=== PATIENT | female | born 2000 | race Caucasian/White ===

== ENCOUNTER 2022-10-04 09:55 | Outpatient (CLI) | payer BC, MEDICAID, SELFPAY ==
--- NOTE | 2022-10-04 | US_ITS ---
WS: [id number] RIGHT UPPER QUADRANT ULTRASOUND HISTORY: RUQ pain COMPARISON: None available. Liver: 16.2 cm in length. Normal size liver and echogenicity. No bile duct dilatation or mass. Portal Vein: Normal hepatopetal flow with monophasic waveform. Gallbladder: Normally distended gallbladder with no stones or wall thickening. CBD: 0.3 cm Pancreas: Normal size and echogenicity. Right kidney: 11.6 cm in length. Normal size and echogenicity. No hydronephrosis or mass. Aorta and IVC: Unremarkable abdominal aorta and IVC. No ascites. US/US gall bladder [id number] IMPRESSION: Normal RIGHT upper quadrant ultrasound.
== END 2022-10-04 09:56 | disposition home or self-care (01) ==
LOC: RAD 09:57
PROVIDERS: PCP Nurse Practitioner Family; Visit Provider Nurse Practitioner Family
DX: R10.11 Right upper quadrant pain (principal)
CPT/HCPCS: 76705

== ENCOUNTER 2022-10-11 09:22 | Emergency (ER) | payer BC, MEDICAID, SELFPAY ==
[2022-10-11 09:43] VITALS: BP 125/79; PULSE 105; RESP 18; TEMP 36.7; O2SAT 99; BMI 28.1
--- NOTE | 2022-10-11 09:55 | ED_ITS ---
HPI - Extremity Problem General: Chief complaint: Extremity Problem,Nontraumatic Stated complaint: left leg swollen and numb Time Seen by Provider: 10/11/22 09:26 Source: patient and family Mode of arrival: ambulatory Limitations: no limitations History of Present Illness: Patient is a 21-year-old female presents to ED today with a complaint of left lower extremity pain and swelling. Patient states she has had symptoms for approximately 4 months now. Pain and swelling seem to be worse when she is on her feet all day and seems to slightly improved with rest/elevation but states swelling never fully subsides. She has seen her primary care provider for this issue. She states a while ago she had an ultrasound performed which did not show a DVT. She states she has been referred to a vein clinic in [place] but their appointment is not until next month. She has not noticed any color, temperature or skin changes to the extremity. She denies shortness of breath or difficulty breathing. She denies any groin pain. Denies previous abdominal surgeries/radiation. MD Complaint: extremity pain and extremity swelling Onset (ago): month(s) Pain Consistency: constant and intermittent Location: left and lower extremity Radiation: none Relieving factors: elevation and rest Exacerbating factors: walking and other (being on her feet all day) Associated symptoms: Reports no associated symptoms; Deny chest pain, fever(s) or rash Review of Systems Const: Denies: fever(s), chills, body aches, fatigue or malaise Card: Denies: chest pain Resp: Denies: dyspnea GI: Denies: abdominal pain Musc: Reports: extremity pain and extremity swelling; Denies: neck pain, back pain, joint pain, joint swelling, joint redness, joint warmth or limited range of motion Skin/Breast: Denies: rash Neuro: Denies: numbness in extremities, weakness in extremities, sensory changes or difficulty walking Physical Exam Const: COMMON NORMALS: no acute distress, patient oriented x3, no limitations, alert and well nourished GENERAL APPEARANCE: cooperative NUTRITIONAL APPEARANCE: overweight ORIENTATION/CONSCIOUSNESS: Yes awake, Yes oriented to person, Yes oriented to place and Yes oriented to time Neck/C-Spine: COMMON NORMALS: no JVD Resp: COMMON NORMALS: normal respiratory effort and clear to auscultation bilaterally AUSCULTATION: clear to auscultation bilaterally Cardio: COMMON NORMALS: no JVD, regular rate and regular rhythm RATE: regular rate RHYTHM: regular rhythm GI: COMMON NORMALS: Normal to inspection, nondistended, normoactive bowel sounds present, Soft to palpation, non-tender, No hepatosplenomegaly present and no masses INSPECTION: Yes normal to inspection PALPATION: Yes Soft to palpation and Yes No hepatosplenomegaly present Extremity: COMMON NORMALS: full ROM, capillary refill normal and no joint enlargement GENERAL: Yes normal exam except as noted and Yes edema (L LE) LEFT LOWER EXTREMITY: Yes lower leg, Yes ankle joint and Yes foot & digits OTHER: non-pitting edema noted to L LE when compared to the R; calf circumference discrepancy between the two extremities is obvious; normal color/temp; no varicosities noted; sensation is normal; DP and PT pulses easily palpable; brisk cap refill Neuro: COMMON NORMALS: patient oriented x3, moves all extremities, no focal motor deficits and no sensory deficits noted SENSORIUM/ORIENTATION: Yes alert, Yes oriented to person, Yes oriented to place and Yes oriented to time Skin: COMMON NORMALS: no rashes or lesions noted GENERAL SKIN EXAM: no rashes or lesions noted Course Vital Signs: Vital signs: Vital Signs Temperature 98.0 F 10/11/22 09:43 Pulse Rate 105 H 10/11/22 09:43 Respiratory Rate 18 10/11/22 09:43 Blood Pressure 125/79 10/11/22 09:43 Pulse Oximetry 99 10/11/22 09:43 Oxygen Delivery Me thod Room Air 10/11/22 09:43 MDM - Extremity (Nontraumatic) Medical Decision Making DDx for unilateral lower extremity edema includes musculoskeletal injury, lymphatic obstruction, venous insufficiency, Blake's cyst, May Thurner syndrome, idiopathic. Her US here is negative for DVT. Nothing noted on US to suggest extrinsic compression. At this time patient is stable to follow up with her PCP for further evaluation/management. Discharge Plan Discharge Patient Disposition: Home Clinical Impression: Unilateral edema of lower extremity Condition: Stable Discharge Orders: Discharge ED (Routine); Ordered 10/11/22 Ordered By: Delisa Hartman Referrals: Felicity De Souza [Primary Care Provider] - Coding Level of Care Code ED Door Furring Installer for Tucker Cowan
--- NOTE | 2022-10-11 10:00 | USCV_ITS ---
Mariola Lerma Age: 21 Gender: F : 2000 Exam Date: 10/11/2022 11:05 Ordering Phys: Delisa Hartman Technologist: Rajan Senior Exam Location: [facility] [place]_ Indication: swelling/ pain PROCEDURES: Venous duplex imaging was performed in only the left lower extremity. The following venous structures were evaluated: common femoral vein, profunda vein, proximal portion of the greater saphenous vein, superficial femoral vein, and the popliteal vein. In addition, the posterior tibial and peroneal trunk were evaluated. Serial compression, augmentation maneuvers, and spectral Doppler flow evaluation were performed. Also scanned iliac vein in the pelvis. FINDINGS: Normal 2-D Doppler and augmentation and compressibility throughout the lower extremity venous structures. Additional imaging through the proximal calf veins also reveals no thrombus. Limited evaluation of the greater saphenous vein is patent with no thrombus. Left iliac vein normal. CONCLUSIONS No DVT left lower extremity. Dr. Roxane Alejo DO (Electronically Signed) Final Date: 11 October 2022 11:43 S
[2022-10-12 08:36] LABS: Glucose Point of Care 269 mg/dL (70-110)
== END 2022-10-11 11:51 | disposition home or self-care (01) ==
PROVIDERS: Emergency Provider Physician Assistant; PCP Nurse Practitioner Family
DX: R60.0 Localized edema (principal)
CPT/HCPCS: 36416; 82962; 93971; 99284

== ENCOUNTER 2022-11-08 12:44 | Emergency (ER) | payer BC, MEDICAID, SELFPAY ==
[2022-11-08 12:54] VITALS: BMI 28.1
[2022-11-08 12:57] VITALS: BP 128/94; PULSE 98; RESP 18; TEMP 36.7; O2SAT 100
--- NOTE | 2022-11-08 13:10 | W.ED.FEMALGU ---
HPI - Female Genitourinary General: Chief complaint: Urogenital-Female Stated complaint: needed labs done Time Seen by Provider: 11/08/22 12:52 History of Present Illness: Patient presents to the ER with complaints of right-sided abdominal pain about the level of the umbilicus for 3 days. She is also been spotting during this time. Patient is taken a couple home test had been negative. But her provider sent her over here to be worried about her an ectopic or ovarian cyst. Date of Last Menstrual Period: 10/29/22 Review of Systems General: Reports: 10 or more systems reviewed and unremarkable except in HPI and below [facility] Female Reproductive History: Date of last menstrual period: 10/29/22 Physical Exam Const: COMMON NORMALS: no acute distress, average body habitus, patient oriented x3, no limitations, healthy appearing, alert and well nourished HENMT: COMMON NORMALS: normocephalic, atraumatic, hearing grossly normal bilaterally, external ears normal, Normal external nose present and moist oral mucous membranes HEAD & SCALP: normocephalic and atraumatic NOSE: Normal external nose present EXTERNAL EAR: Yes external ears normal Eye: COMMON NORMALS: Equal, round and reactive pupils present, EOMs intact bilaterally, conjunctivae normal and no scleral icterus CONJUNCTIVA: Yes conjunctivae normal PUPIL: Yes Equal, round and reactive pupils present Neck/C-Spine: COMMON NORMALS: full ROM, no lymphadenopathy, supple, no meningeal signs, no JVD and Thyroid normal THYROID: Thyroid normal Lymph: LYMPHATIC: no lymphadenopathy noted Chest: COMMONS NORMALS: normal inspection of the chest and normal palpation of entire chest wall Resp: COMMON NORMALS: normal respiratory effort, No retractions, No use of accessory muscles and clear to auscultation bilaterally AUSCULTATION: clear to auscultation bilaterally Cardio: COMMON NORMALS: no JVD, regular rate, regular rhythm, S1 normal heart sound present, S2 normal heart sound present, No gallops present (Cardio), No clicks present (Cardio), No murmurs present (Cardio) and No rub (Cardio) RATE: regular rate RHYTHM: regular rhythm HEART SOUNDS: S1 normal heart sound present and S2 normal heart sound present GI: COMMON NORMALS: Normal to inspection, nondistended, normoactive bowel sounds present, Soft to palpation, No hepatosplenomegaly present and no masses; negative for non-tender (Positive right upper quadrant tenderness with palpation.) PALPATION: Yes Soft to palpation and Yes No hepatosplenomegaly present : COMMON NORMALS: Yes no CVA tenderness BLADDER/KIDNEY EXAM: Yes no CVA tenderness Back/Pelvis: COMMON NORMALS: no CVA tenderness Neuro: COMMON NORMALS: patient oriented x3 SENSORIUM/ORIENTATION: Yes alert MENINGEAL SIGNS: Yes no meningeal signs Course Vital Signs: Vital signs: Vital Signs Temperature 98.1 F 11/08/22 12:57 Pulse Rate 89 11/08/22 15:02 Respiratory Rate 18 11/08/22 12:57 Blood Pressure 123/79 11/08/22 15:02 Pulse Oximetry 95 11/08/22 15:02 Oxygen Delivery Me thod Room Air 11/08/22 14:27 MDM - Female Medical Decision Making Patient presents to the ER with complaints of right-sided abdominal pain and was worried about ectopic and/or a ovarian cyst. Physical exam was performed patient had more tenderness up in the upper right quadrant than anywhere else. Lab work was obtained which was essentially benign as well as her CT scan of her abdomen pelvis with contrast. These findings were discussed with the patient and patient will be discharged home to follow-up with her PCP as needed. Differential Diagnosis Likely abdominal pain; Unlikely acute appendicitis, calculus of kidney, constipation, diverticulitis, endometriosis, gastroenteritis, pancreatitis or small bowel obstruction Medical Records I reviewed the patient's medical records. Lab Data I reviewed the patient's lab results. 11/08/22 13:22 11/08/22 13:22 Laboratory Results WBC 5.35 10^3/uL (3.29-11.43) 11/08/22 13:22 RBC 4.76 10^6/uL (3.85-5.65) 11/08/22 13:22 Hgb 14.50 g/dL (11.27-16.99) 11/08/22 13:22 Hct 43.9 % (36-47) 11/08/22 13:22 MCV 92.2 fl (85-98) 11/08/22 13:22 MCH 30.5 pg (27-33) 11/08/22 13:22 MCHC 33.0 g/dL (30-55) 11/08/22 13:22 RDW 11.5 % (12.1-15.1) L 11/08/22 13:22 Plt Count 349 10^3/cmm (157-399) 11/08/22 13:22 MPV 10.4 fL (7.4-10.4) 11/08/22 13:22 Neut % (Auto) 49.8 % 11/08/22 13:22 Lymph % (Auto) 40.6 % 11/08/22 13:22 [place] % (Auto) 5.8 % 11/08/22 13:22 Eos % (Auto) 1.5 % 11/08/22 13:22 Baso % (Auto) 2.1 % 11/08/22 13:22 Neut # (Auto) 2.67 10^3/uL (1.8-7.7) 11/08/22 13:22 Lymph # (Auto) 2.2 10^3/uL (0.8-4.8) 11/08/22 13:22 [place] # (Auto) 0.3 10^3/uL (0.2-0.9) 11/08/22 13:22 Eos # (Auto) 0.1 10^3/uL (0.0-0.8) 11/08/22 13:22 Baso # (Auto) 0.1 10^3/uL (0.0-0.1) 11/08/22 13:22 Nucleated RBC % (auto) 0 % 11/08/22 13:22 Nucleated RBCs # 0.0 /100WBC 11/08/22 13:22 Sodium 133 mmol/L (136-145) L 11/08/22 13:22 Potassium 4.2 mmol/L (3.5-5.1) 11/08/22 13:22 Chloride 94 mmol/L (98-107) L 11/08/22 13:22 Carbon Dioxide 21 mmol/L (22-29) L 11/08/22 13:22 Anion Gap 22.2 (5-19) H 11/08/22 13:22 BUN 13 mg/dL (6-20) 11/08/22 13:22 Creatinine 0.7 mg/dL (0.5-0.9) 11/08/22 13:22 GFR Calculation 105.6 mL/min (90-130) 11/08/22 13:22 Glucose 244 mg/dL (65-115) H 11/08/22 13:22 Calculated Osmolality 284 mOsm/kg (285-295) L 11/08/22 13:22 Calcium 9.6 mg/dL (8.5-10.5) 11/08/22 13:22 Total Bilirubin 0.4 mg/dL (0.15-1.2) 11/08/22 13:22 AST 16 U/L (0-32) 11/08/22 13:22 ALT 15 U/L (0-33) 11/08/22 13:22 Alkaline Phosphatase 106 U/L (35-105) H 11/08/22 13:22 Total Protein 8.0 g/dL (6.6-8.7) 11/08/22 13:22 Albumin 4.5 g/dL (3.5-5.2) 11/08/22 13:22 Globulin 3.5 g/dL (1.3-4.6) 11/08/22 13:22 Lipase 20 U/L (13-60) 11/08/22 13:22 HCG, Qual Negative (Negative) 11/08/22 13:27 Urine Color Straw (Yellow) 11/08/22 13:27 Urine Appearance Clear (CLEAR) 11/08/22 13:27 Urine pH 5 (5-7) 11/08/22 13:27 Ur Specific [place] 1.015 (1.005-1.030) 11/08/22 13:27 Urine Protein Neg (Negative) 11/08/22 13:27 Urine Glucose (UA) 4+ (Normal) H 11/08/22 13:27 Urine Ketones 3+ (Negative) H 11/08/22 13:27 Urine Blood Neg (Negative) 11/08/22 13:27 Urine Nitrate Negative (Negative) 11/08/22 13:27 Urine Bilirubin Neg (Negative) 11/08/22 13:27 Urine Urobilinogen Norm mg/dL (Negative) 11/08/22 13:27 Ur Leukocyte Esterase Negative (Negative) 11/08/22 13:27 Discharge Plan Discharge Patient Disposition: Home Clinical Impression: Right sided abdominal pain Condition: Stable Prescriptions: No Action levothyroxine 50 mcg tablet 50 mcg PO DAILY Humalog KwikPen Insulin 100 unit/mL insulin pen See Rx Instructions .ROUTE .COMPLEX Rx Instructions: as directed with lionel Conte Solostar U-100 Insulin 100 unit/mL (3 mL) insulin pen 25 unit SUBCUT BEDTIME Discharge Orders: Discharge ED (Routine); Ordered 11/08/22 Ordered By: Rj Perdomo Referrals: Felicity De Souza [Primary Care Provider] - 1 week Patient Instructions: Abdominal Pain (ED) Activity Restrictions/Additional Instructions: Please follow-up with your family practice physician in 1 week or sooner as needed. If your pain worsens or returns and is uncontrollable please return to the ER for further evaluation and treatment. Coding Level of Care Code ED Machine Setter for Tucker Cowan
[2022-11-08 13:30] VITALS: BP 120/78; PULSE 100; O2SAT 96
[2022-11-08 13:30] LABS: Basophils # 0.1 10^3/uL (0.0-0.1); Basophils % 2.1 %; Eosinophils # 0.1 10^3/uL (0.0-0.8); Eosinophils % 1.5 %; Hematocrit 43.9 % (36-47); Lymphocytes # 2.2 10^3/uL (0.8-4.8); Lymphocytes % 40.6 %; Mean Corpuscular Hemoglobin 30.5 pg (27-33); Mean Corpuscular Volume 92.2 fl (85-98); Mean Platelet Volume 10.4 fL (7.4-10.4); Monocytes # 0.3 10^3/uL (0.2-0.9); Monocytes % 5.8 %; Neutrophils # 2.67 10^3/uL (1.8-7.7); Neutrophils % 49.8 %; Nucleated Red Blood Cells % 0 %; Platelet Count 349 10^3/cmm (157-399); Red Blood Count 4.76 10^6/uL (3.85-5.65); Red Cell Distribution Width 11.5 % (12.1-15.1); White Blood Count 5.35 10^3/uL (3.29-11.43)
[2022-11-08 13:31] LABS: Add Urine Microscopic? NO; Charge for UA Resulting for Rev
[2022-11-08 13:42] LABS: Bilirubin Urine Neg (Negative); Blood Urine Neg (Negative); Glucose Urine UA 4+ (Normal); Ketones Urine 3+ (Negative); Leukocyte Esterase Urine Negative (Negative); Nitrate Urine Negative (Negative); Protein Urine Neg (Negative); Specific Gravity, Urine 1.015 (1.005-1.030); Urine Appearance Clear (CLEAR); Urine Color Straw (Yellow); Urobilinogen Urine Norm (Negative); pH Urine 5 (5-7)
[2022-11-08 13:43] LABS: HCG Qualitative Urine. Negative (Negative)
[2022-11-08 13:44] LABS: Alanine Aminotransferase 15 U/L (0-33); Albumin Level 4.5 g/dL (3.5-5.2); Alkaline Phosphatase 106 U/L (35-105); Anion Gap 22.2 (5-19); Aspartate Amino Transferase 16 U/L (0-32); Blood Urea Nitrogen 13 mg/dL (6-20); Calcium 9.6 mg/dL (8.5-10.5); Carbon Dioxide 21 mmol/L (22-29); Chloride 94 mmol/L (98-107); Globulin 3.5 g/dL (1.3-4.6); Glomerular Filtration Rate 105.6 mL/min (90-130); Glucose 244 mg/dL (65-115); Lipase 20 U/L (13-60); Osmolality Calculated 284 mOsm/kg (285-295); Potassium 4.2 mmol/L (3.5-5.1); Sodium 133 mmol/L (136-145); Total Bilirubin 0.4 mg/dL (0.15-1.2)
--- NOTE | 2022-11-08 13:51 | CT_ITS ---
WS: [id number] CT ABDOMEN AND PELVIS WITH CONTRAST HISTORY: abd pain ruq, TECHNIQUE: Imaging performed of the abdomen and pelvis with IV contrast. Single phase imaging of the abdomen. Coronal and sagittal reformats are submitted. All CT scans at [facility] use at [address] one of these dose optimization techniques: automated exposure control; mA and/or kV adjustment per patient size (includes targeted exams where dose is matched to clinical indication); or iterative re construction. IV CONTRAST: Omnipaque 350; 100 mL IV. Oral contrast: No DLP: 733.65 mGy.cm COMPARISON: None available. Lower thorax: Lung bases are clear. Heart is normal size. No hiatal hernia. Liver/biliary system: Moderately enlarged liver. Normal enhancement. No bile duct dilatation. Gallbladder: Normal. No gallstones or wall thickening. No pericholecystic fluid. Pancreas: Normal size pancreas and pancreatic duct. No adjacent inflammation. Spleen: Normal size spleen. No mass or infarct. Adrenal glands: Normal. Right kidney: Normal. Left kidney: Normal. Aorta: Normal. Lymphadenopathy: None. Free fluid: None. GI tract: No history of appendectomy was provided but there are surgical clips in the region of the R IGHT lower quadrant and I suspect the patient has had a prior appendectomy. The appendix is not ident ified. No inflammatory changes. Moderate constipation throughout the colon greatest towards the rectu m. Abdominal wall: Unremarkable abdominal wall. No hernia. Pelvis: Small follicles within each ovary. No pelvic mass or free fluid. Bones: Unremarkable. IMPRESSION: 1. No acute abdominopelvic abnormalities are identified. 2. The appendix was not identified. There are clips in the RIGHT lower quadrant and I suspect the pa tient had a prior appendectomy although that history has not been provided. 3. Mild hepatic enlargement. 4. Small bilateral ovarian follicles.
[2022-11-08] MEDS: iohexol 350 mg/mL 500 mL Btl (per mL) IV (13:59)
[2022-11-08 14:27] VITALS: BP 121/83; PULSE 95; O2SAT 96
[2022-11-08 15:02] VITALS: BP 123/79; PULSE 89; O2SAT 95
== END 2022-11-08 15:03 | disposition home or self-care (01) ==
PROVIDERS: Emergency Provider Emergency Medicine; PCP Nurse Practitioner Family
DX: R10.11 Right upper quadrant pain (principal); Z79.4 Long term (current) use of insulin
CPT/HCPCS: 74177; 80053; 81003; 81025; 83690; 85025; 99285; Q9967